=== PATIENT | female | born 1995 ===

== ENCOUNTER 2020-10-01 10:37 | Outpatient (CLI) | payer SELFPAY ==
[2020-10-01 11:07] VITALS: BP 117/79
[2020-10-01] MEDS ORDERED: BETAMET ACET/BETAMET NA PH 6 MG/ML INJ 5 ML MDV IM ONE (12:21)
== END 2020-10-01 11:55 | disposition home or self-care (01) ==
LOC: EDBD → TRG 10:37 → APU 10:39 → TRG 11:55
PROVIDERS: ATTEND Obstetrics & Gynecology
DX: O47.03 False labor before 37 completed weeks of gestation, third trimester (principal); Z87.891 Personal history of nicotine dependence; Z3A.28 28 weeks gestation of pregnancy
CPT/HCPCS: 59025; 96372; J0702

== ENCOUNTER 2020-10-02 11:14 | Outpatient (CLI) | payer SELFPAY ==
[2020-10-02] MEDS ORDERED: LACTATED RINGERS 500 ML IV ONE (11:50)
[2020-10-02] MEDS ORDERED: BETAMET ACET/BETAMET NA PH 6 MG/ML INJ 5 ML MDV IM ONE (11:50)
[2020-10-02 11:57] VITALS: BP 101/64
== END 2020-10-02 12:30 | disposition home or self-care (01) ==
LOC: TRG 11:14 → APU 11:27 → TRG 12:30
PROVIDERS: ATTEND Obstetrics & Gynecology
DX: Z34.93 Encounter for supervision of normal pregnancy, unspecified, third trimester (principal); Z3A.28 28 weeks gestation of pregnancy
CPT/HCPCS: 59025; 96372; J0702

== ENCOUNTER 2020-11-23 07:47 | Inpatient (IN) | payer OTHER ==
[2020-11-23 10:15] LABS: Hematocrit 37.8 % (30.3-42.9); Hemoglobin 12.9 gm/dl (10.1-14.3); Mean Corpuscular HGB Conc 34 % (30-34); Mean Corpuscular Volume 93 fl (79-97); Platelet Count 134 K/mm3 (140-440); Red Blood Count 4.05 M/mm3 (3.65-5.03); Red Cell Distribution Width 12.7 % (13.2-15.2)
[2020-11-23 10:41] LABS: Bilirubin,Urine NEG (Negative); Blood,Urine NEG (Negative); Color,Urine Yellow (Yellow); Mucus,Urine 1+ /HPF; Urobilinogen,Urine < 2.0 mg/dL (<2.0)
[2020-11-23] MEDS ORDERED: LIDOCAINE (2%) 20 MG/1 ML VIAL 20 ML MDV INFILTRATI NR (11:15)
[2020-11-23] MEDS ORDERED: NALOXONE 0.4 MG/1 ML INJ IV PRN (11:15)
[2020-11-23] MEDS ORDERED: ePHEDrine SULFATE 50 MG/1 ML INJ IV PRN (11:15)
[2020-11-23] MEDS ORDERED: TERBUTALINE 1 MG/1 ML INJ SUB-Q PRN (11:15)
[2020-11-23] MEDS ORDERED: ONDANSETRON 4 MG/2 ML INJ IV PRN (11:15)
--- NOTE | 2020-11-23 11:32 | History and Physical Report ---
History of Present Illness Date of examination: 11/23/20 Date of admission: 11/23/2020 Chief complaint: My water broke at 0700 this morning History of present illness: Early entry to care at [facility], course complicated by Abnormal Pap (ASCUS /Neg HPV); Abnormal Quad Screen (+ Open NTD); Thrombocytopenia; and IUGR (co-managed with [facility], Received Steriods series @ 28 weeks). 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 Family/Genetic History: hypertension (mother) Social history: smoking (o), alcohol abuse (Stopped with +UPT) - Obstetrical History Expected Date of Delivery: 12/22/20 Actual Gestation: 35 Week(s) 6 Day(s) : 1 Para: 0 Number of Living Children: 0 Medications and Allergies Allergies Allergy/AdvReac Type Severity Reaction Status Date / Time No Known Allergies Allergy Verified 10/02/20 11:55 Active Meds: Active Medications Butorphanol Tartrate (Butorphanol 2 Mg/1 Ml Inj) 1 mg IV Q2H PRN PRN Reason: Pain, Moderate(4-6) LABOR PAIN Ephedrine Sulfate (Ephedrine Sulfate 50 Mg/1 Ml Inj) 10 mg IV Q2M PRN PRN Reason: Hypotension Oxytocin/Sodium Chloride (Pitocin/Ns 30 Unit/500ml) 30 units in 500 mls @ 2 mls/hr IV TITR RAYMUNDO; Protocol Lactated Ringer's (Lactated Ringers) 1,000 mls @ 125 mls/hr IV DIRECT RAYMUNDO Oxytocin/Sodium Chloride (Pitocin/Ns 30 Unit/500ml) 30 units in 500 mls @ 40 mls/hr IV TITR RAYMUNDO; Protocol Lidocaine (Lidocaine (2%) 20 Mg/1 Ml Vial 20 Ml Mdv) 20 ml INFILTRATI ONCE ONE Stop: 11/23/20 11:16 Mineral Oil (Mineral Oil 30 Ml Oral Liqd) 30 ml PO QHS PRN PRN Reason: Constipation Naloxone HCl (Naloxone 0.4 Mg/1 Ml Inj) 0.1 mg IV Q2MIN PRN PRN Reason: Res Rate </= 8 or 02 SAT < 92% Ondansetron HCl (Ondansetron 4 Mg/2 Ml Inj) 4 mg IV Q8H PRN PRN Reason: Nausea And Vomiting Terbutaline Sulfate (Terbutaline 1 Mg/1 Ml Inj) 0.25 mg SUB-Q ONCE PRN PRN Reason: Hyperstimulation/Hypertonicity Review of Systems All systems: negative - Vital Signs Vital signs: Vital Signs Temp Pulse Resp BP Pulse Ox 98.2 F 111 H 14 111/68 98 11/23/20 09:10 11/23/20 09:10 11/23/20 09:10 11/23/20 09:10 11/23/20 09:10 Temp Pulse Resp BP Pulse Ox 98.2 F 97 H 14 111/68 97 11/23/20 09:10 11/23/20 09:45 11/23/20 09:10 11/23/20 09:15 11/23/20 09:45 - Physical Exam Breasts: Positive: normal Cardiovascular: Regular rate Lungs: Positive: Clear to auscultation, Normal air movement Abdomen: Positive: normal appearance, soft, normal bowel sounds Genitourinary (Female): Positive: normal external genitalia, normal perenium Vagina: Positive: normal moisture Uterus: Positive: enlarged Anus/Rectum: Positive: normal perianal skin, heme negative Extremities: Positive: normal - Obstetrical FHR: category 1 Uterine Contraction Monitor Mode: External Cervical Dilatation: 1 (leaking a small amount of clear fluid) Cervical Effacement Percentage: 40 station: -1 Uterine Contraction Pattern: Irregular Uterine Tone Measurement Phase: Resting Uterine Contraction Intensity: Mild Results Result Diagrams: 11/23/20 09:10 Abnormal lab results 11/23/20 Range/Units 09:10 WBC 12.7 H (4.5-11.0) K/mm3 RDW 12.7 L (13.2-15.2) % Plt Count 134 L (140-440) K/mm3 All other labs normal. Assessment and Plan A: IUP @ 35 6/7 Weeks Category I Tracing PPROM GBS Negative P: Admit to L&D Per Routine Orders Start Low Dose Pitocin
[2020-11-23] MEDS: LACTATED RINGERS 1,000 ML IV SCH ×3 (11:59→20:04)
[2020-11-23] MEDS ORDERED: OXYTOCIN DRIP 30 UNITS/500 ML BAG IV SCH ×2 (12:00)
[2020-11-23] MEDS: BUTORPHANOL 2 MG/1 ML INJ IV PRN ×2 (15:53→20:27)
[2020-11-23] MEDS ORDERED: NalbUPHINE 10 MG/1 ML INJ IV PRN (21:13)
[2020-11-23] MEDS ORDERED: NALOXONE 2 MG/2 ML INJ IV PRN (21:13)
[2020-11-23] MEDS ORDERED: diphenhydrAMINE 50 MG/ML VIAL IV PRN (21:13)
--- NOTE | 2020-11-23 21:49 | Anesthesia Consultation ---
Anesthesia Consult and Med Hx Date of service: 11/23/20 - Airway Anesthetic Teeth Evaluation: Good ROM Head & Neck: Adequate Mental/Hyoid Distance: Adequate Mallampati Class: Class I Intubation Access Assessment: Good - Pulmonary Exam CTA: Yes - Cardiac Exam Cardiac Exam: RRR - Pre-Operative Health Status ASA Pre-Surgery Classification: ASA2 Proposed Anesthetic Plan: Epidural - Pulmonary Hx Smoking: No Hx Asthma: No COPD: No Hx Pneumonia: No Hx Sleep Apnea: No - Cardiovascular System Hx Hypertension: No Hx Heart Attack/AMI: No Hx Angina: No - Central Nervous System Hx Seizures: No Hx Psychiatric Problems: No - Gastrointestinal Hx Gastroesophageal Reflux Disease: No - Endocrine Hx Renal Disease: No Hx End Stage Renal Disease: No Hx Insulin Dependent Diabetes: No Hx Non-Insulin Dependent Diabetes: No Hx Hypothyroidism: No Hx Hyperthyroidism: No - Hematic Hx Anemia: No Hx Sickle Cell Disease: No - Other Systems Hx Alcohol Use: No
--- NOTE | 2020-11-23 21:51 | Progress Note ---
Labor Epidural - Labor Epidural Start Time: 21:25 Stop Time: 21:43 Performed by:: MARISOL BALDWIN Procedure: Patient is requesting epidural for labor and pain. H&P, labs were reviewed. Patient IDed, H&P reviewed, all questions and concerns were answered, and consent was signed. Timeout was performed at bedside. Patient in sitting position. Sterile prep and drape was performed. 3ml of 1% lidocaine skin wheal at L[3]- L [4]. 18-gauge Tuohy epidural needle was advanced to loss of resistance with air technique 5cm. Negative CSF positive blood. Catheter removed intact. 18-gauge Tuohy epidural needle was advanced to loss of resistance with air technique 5cm. Negative CSF negative blood. Epidural catheter advanced to [10] centimeters. [negative] Aspiration [negative] test dose. Sterile dressing applied. Patient tolerated procedure.
[2020-11-23] MEDS ORDERED: fentaNYL-BUPIV 2 MCG/ML-0.125% 200 MCG/100 ML BAG EPIDURAL SCH (22:00)
[2020-11-23] MEDS ORDERED: MINERAL OIL 30 ML ORAL LIQD PO PRN (22:00)
[2020-11-23] MEDS ORDERED: miSOPROStol 100 MCG TAB ONE (23:42)
[2020-11-23] MEDS ORDERED: miSOPROStol 200 MCG TAB ONE (23:43)
--- NOTE | 2020-11-24 00:22 | Procedure Note ---
OB Delivery Note - Delivery Date of Delivery: 11/23/20 (2334) Surgeon: CURTIS ESQUIVEL Estimated blood loss: 100cc - Vaginal Delivery presentation: vertex Delivery position: OA Intrapartum events: mult.variable deceleratio, other(please specify) (PPROM) Delivery induction: oxytocin Delivery augmentation: pitocin Delivery monitor: external FHT, external uterine Route of delivery: Delivery placenta: manual Delivery cord: 3 umbilical vessels Episiotomy: none Delivery laceration: 2nd degree Delivery repair: vicryl Anesthesia: epidural Delivery comments: of a live 4'3 female with Apgars of 7 and 8 over a 2nd degree perineal laceration under epidural anesthesia at 2334 on 11/23/2020. Loose body cord x 1; reduced with delivery of . Cord double clamped and cut by MALENA Esquivel. 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 Manual extraction of placenta due to avulsed cord, appears to be complete and intact on 1 attempt at 2338. Cytotec 1000mcg given per rectum. Fundus is firm and midline, located 4 below the U. Lochia is scant. Laceration repaired with 2-[address]-1. Placenta to pathology. - A at 1 minute: 7 at 5 minutes: 8 Gender: Female (4'3)
[2020-11-24] MEDS ORDERED: miSOPROStol 200 MCG TAB PR ONE (00:32)
[2020-11-24] MEDS ORDERED: PROMETHAZINE 25 MG TAB PO PRN (00:34)
[2020-11-24] MEDS ORDERED: WITCH HAZEL/ GLYCERIN PAD TP PRN (00:34)
[2020-11-24] MEDS ORDERED: LANOLIN/ZINC/DIMETHICONE (LANSINOH) 7 GM TP PRN (00:34)
[2020-11-24] MEDS ORDERED: MAGNESIUM HYDROXIDE (MOM) ORAL LIQD UDC PO PRN (00:34)
[2020-11-24] MEDS ORDERED: diphenhydrAMINE 25 MG CAP PO PRN (00:34)
[2020-11-24] MEDS ORDERED: oxyCODONE /ACETAMINOPHEN 5-325MG TAB PO PRN (00:34)
[2020-11-24] MEDS: IBUPROFEN 600 MG TAB PO SCH ×4 (05:19→23:53)
--- NOTE | 2020-11-24 12:07 | Post Anesthesia Evaluation ---
- Post Anesthesia Evaluation Patient Participated: Yes Airway Patent: Yes Stable Respiratory Function: Yes Nausea/Vomiting: No Temp > 96.8F: Yes Pain Manageable: Yes Adequeate Hydration: Yes Anesthesia Complications: No Block Receding Appropriately: Yes Patient on Ventilator: No
[2020-11-24 14:24] LABS: Hematocrit 31.5 % (30.3-42.9); Hemoglobin 10.7 gm/dl (10.1-14.3)
[2020-11-24] MEDS: guaiFENesin 100 MG/5 ML ORAL LIQD PO PRN (17:47)
[2020-11-25] MEDS: IBUPROFEN 600 MG TAB PO SCH ×2 (06:06→17:27)
[2020-11-25] MEDS: guaiFENesin 100 MG/5 ML ORAL LIQD PO PRN ×3 (06:08→17:28)
--- NOTE | 2020-11-25 09:01 | Progress Note ---
Subjective - Subjective Date of service: 11/25/20 Interval history: AM rounds no complaints at bedside VSS PE benign Lochia minimal continue routine care D/C to home in AM Monique Schuler MD Objective - Vital Signs Latest vital signs: Vital Signs Temp Pulse Resp BP BP Pulse Ox 11/25/20 00:33 98.1 F 99 H 18 120/75 98 11/24/20 16:00 98.1 F 87 16 106/68 97 Intake and Output 11/24/20 11/25/20 11/25/20 23:59 07:59 15:59 Intake Total 120 360 Balance 120 360 Intake: Oral 120 360 Other: Total, Intake Amount 120 120 # Voids Void 1 1 - Exam Breasts: Present: normal Cardiovascular: Present: Regular rate Lungs: Present: Clear to auscultation Abdomen: Present: normal appearance, normal bowel sounds Uterus: Present: normal, bogginess, fundal height at umbilicus Extremities: Present: normal Deep Tendon Reflex Grade: Normal but brisk +3
[2020-11-25 18:15] VITALS: BP 103/64
== END 2020-11-25 18:15 | disposition home or self-care (01) | DRG 807 ==
LOC: TRG 07:47 → APU 07:49 → LD 08:39 → TRG 11:15 → OB 11-24 01:36
PROVIDERS: ADMIT Obstetrics & Gynecology; ATTEND Obstetrics & Gynecology
PROC: 10E0XZZ Delivery of Products of Conception, External Approach (ICD-10-PCS; principal; 2020-11-23)
PROC: 0KQM0ZZ Repair Perineum Muscle, Open Approach (ICD-10-PCS; 2020-11-23)
PROC: 3E0R3BZ Introduction of Anesthetic Agent into Spinal Canal, Percutaneous Approach (ICD-10-PCS; 2020-11-24)
PROC: 00HU33Z Insertion of Infusion Device into Spinal Canal, Percutaneous Approach (ICD-10-PCS; 2020-11-24)
PROC: 3E033VJ Introduction of Other Hormone into Peripheral Vein, Percutaneous Approach (ICD-10-PCS; 2020-11-24)
DX: O60.14X0 Preterm labor third trimester with preterm delivery third trimester, not applicable or unspecified (principal); Z37.0 Single live birth; O42.013 Preterm premature rupture of membranes, onset of labor within 24 hours of rupture, third trimester; Z3A.35 35 weeks gestation of pregnancy; Z20.822 Contact with and (suspected) exposure to COVID-19; O70.1 Second degree perineal laceration during delivery
CPT/HCPCS: 36415; 81001; 85014; 85018; 85027; 86592; 86850; 86900; 86901; 88307; G0378; A6250; J0595; J2590; J7120; Q0169; U0003

== ENCOUNTER 2020-12-01 09:02 | Inpatient (IN) | payer OTHER ==
[2020-12-01] MEDS ORDERED: SODIUM CHLORIDE 0.9% 1000 ML 1,000 ML IV ONE ×2 (09:27)
--- NOTE | 2020-12-01 09:39 | Emergency Department Report ---
HPI - General Chief Complaint: Vaginal Bleeding Time Seen by Provider: 12/01/20 09:26 - [facility] HPI: Room 22 The patient is a 25-year-old female present with a chief complaint of vaginal bleeding. Patient is status post vaginal delivery 11/23/2020. The patient states since she was discharged home she has continued to have heavy vaginal bleeding. Patient estimates she goes through approximately 7-9 pads per day. Patient states she began feeling dizzy, weak and short of breath. Patient complains of lower abdominal pain. She states she had a fever 101 F last night. ED Past Medical Hx - Surgical History Past Surgical History?: No - Family History Family history: no significant - Social History Smoking Status: Never Smoker Substance Use Type: None - Medications Home Medications: Home Medications Medication Instructions Recorded Confirmed Last Taken Type No Known Home Medications [No 11/24/20 11/24/20 Unknown History Reported Home Medications] ED Review of Systems ROS: Stated complaint: BLEEDING/ADB PAIN Other details as noted in HPI Constitutional: fever, weakness Eyes: denies: eye pain ENT: denies: throat pain Respiratory: shortness of breath Cardiovascular: denies: chest pain Endocrine: no symptoms reported Gastrointestinal: abdominal pain Genitourinary: abnormal menses Musculoskeletal: denies: back pain Neurological: denies: headache Physical Exam - Physical Exam Vital Signs: Vital Signs 12/01/20 09:08 Temperature 98 F Pulse Rate 131 H Respiratory 18 Rate Blood Pressure 95/49 [Right] O2 Sat by Pulse 99 Oximetry Vital Signs 12/01/20 12/01/20 12/01/20 09:08 09:30 09:46 Temperature 98 F Pulse Rate 131 H 109 H 110 H Respiratory 18 23 30 H Rate Blood Pressure 101/60 88/56 Blood Pressure 95/49 [Right] O2 Sat by Pulse 99 99 99 Oximetry 12/01/20 10:00 Temperature Pulse Rate 104 H Respiratory 36 H Rate Blood Pressure 98/62 Blood Pressure [Right] O2 Sat by Pulse 100 Oximetry Physical Exam: GENERAL: The patient is well-developed well-nourished female lying on stretcher appearing to be in mild discomfort. [] HEENT: Normocephalic. Atraumatic. Extraocular motions are intact. Patient has moist mucous membranes. NECK: Supple. Trachea midline CHEST/LUNGS: Clear to auscultation. There is no respiratory distress noted. HEART/CARDIOVASCULAR: Regular. There is tachycardia. There is no gallop rub or murmur. ABDOMEN: Abdomen is soft, with tenderness to palpation in the lower abdomen. Patient has normal bowel sounds. There is no abdominal distention. SKIN: There is no rash. There is no edema. There is no diaphoresis. NEURO: The patient is awake, alert, and oriented. The patient is cooperative. The patient has no focal neurologic deficits. The patient has normal speech MUSCULOSKELETAL: There is no evidence of acute injury. 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 Archer- will come evaluate patient ED Medical Decision Making - Lab Data Result diagrams: 12/01/20 09:34 12/01/20 09:34 Laboratory Tests 12/01/20 12/01/20 12/01/20 09:34 09:34 09:34 WBC 21.3 H RBC 3.09 L Hgb 9.5 L Hct 27.8 L MCV 90 MCH 31 MCHC 34 RDW 12.5 L Plt Count 206 Add Manual Diff Complete Total Counted 100 Seg Neuts % (Manual) 82.0 H Band Neutrophils % 7.0 Lymphocytes % (Manual) 5.0 L Monocytes % (Manual) 6.0 Nucleated RBC % Not Reportable Seg Neutrophils # Man 17.5 H Band Neutrophils # 1.5 Lymphocytes # (Manual) 1.1 L Abs React Lymphs (Man) 0.0 Monocytes # (Manual) 1.3 H Eosinophils # (Manual) 0.0 Basophils # (Manual) 0.0 Metamyelocytes # 0.0 Myelocytes # 0.0 Promyelocytes # 0.0 Blast Cells # 0.0 WBC Morphology Not Reportable Hypersegmented Neuts Not Reportable Hyposegmented Neuts Not Reportable Hypogranular Neuts Not Reportable Smudge Cells Not Reportable Toxic Granulation Not Reportable Toxic Vacuolation Not Reportable Dohle Bodies Not Reportable Pelger-Huet Anomaly Not Reportable Pricila Rods Not Reportable Platelet Estimate Consistent w auto Clumped Platelets Not Reportable Plt Clumps, EDTA Not Reportable Large Platelets Not Reportable Giant Platelets Not Reportable Platelet Satelliting Not Reportable Plt Morphology Comment Not Reportable RBC Morphology Not Reportable Dimorphic RBCs Not Reportable Polychromasia Few Hypochromasia Not Reportable Poikilocytosis Not Reportable Anisocytosis Not Reportable Microcytosis Not Reportable Macrocytosis Not Reportable Spherocytes Not Reportable Pappenheimer Bodies Not Reportable Sickle Cells Not Reportable Target Cells Not Reportable Tear Drop Cells Not Reportable Ovalocytes Not Reportable Helmet Cells Not Reportable [place]ald[place] Bodies Not Reportable Stewardson Rings Not Reportable Shyanne Cells Not Reportable Bite Cells Not Reportable Crenated Cell Not Reportable Elliptocytes Not Reportable Acanthocytes (Spur) Not Reportable Rouleaux Not Reportable Hemoglobin C Crystals Not Reportable Schistocytes Not Reportable Malaria parasites Not Reportable Henri Bodies Not Reportable Hem Pathologist Commnt No PT 13.6 INR 1.05 APTT 29.8 Sodium 132 L Potassium 4.0 Chloride 99.6 Carbon Dioxide 22 Anion Gap 14 BUN 8 Creatinine 0.5 L Estimated GFR > 60 BUN/Creatinine Ratio 16 Glucose 113 H Calcium 8.9 HCG, Quant 12/01/20 09:34 WBC RBC Hgb Hct MCV MCH MCHC RDW Plt Count Add Manual Diff Total Counted Seg Neuts % (Manual) Band Neutrophils % Lymphocytes % (Manual) Monocytes % (Manual) Nucleated RBC % Seg Neutrophils # Man Band Neutrophils # Lymphocytes # (Manual) Abs React Lymphs (Man) Monocytes # (Manual) Eosinophils # (Manual) Basophils # (Manual) Metamyelocytes # Myelocytes # Promyelocytes # Blast Cells # WBC Morphology Hypersegmented Neuts Hyposegmented Neuts Hypogranular Neuts Smudge Cells Toxic Granulation Toxic Vacuolation Dohle Bodies Pelger-Huet Anomaly Pricila Rods Platelet Estimate Clumped Platelets Plt Clumps, EDTA Large Platelets Giant Platelets Platelet Satelliting Plt Morphology Comment RBC Morphology Dimorphic RBCs Polychromasia Hypochromasia Poikilocytosis Anisocytosis Microcytosis Macrocytosis Spherocytes Pappenheimer Bodies Sickle Cells Target Cells Tear Drop Cells Ovalocytes Helmet Cells [place]on-[place]ald[place] Bodies Stewardson Rings [place] Cells Bite Cells Crenated Cell Elliptocytes Acanthocytes (Spur) Rouleaux Hemoglobin C Crystals Schistocytes Malaria parasites Henri Bodies Hem Pathologist Commnt PT INR APTT Sodium Potassium Chloride Carbon Dioxide Anion Gap BUN Creatinine Estimated GFR BUN/Creatinine Ratio Glucose Calcium HCG, Quant 650.6 H - Radiology Data Radiology results: report reviewed (Pelvic ultrasound), image reviewed (Pelvic ultrasound) [facility] [address] [place] [address] Ultrasound Report Signed Patient: KELLY MARCELINO R#: [id number] : 1995 Acct:[id number] Age/Sex: 25 / F ADM Date: 12/01/20 Loc: ED Attending Dr: Ordering Physician: GEOVANY BRAGA MD Date of Service: 12/01/20 P rocedure(s): US pelvic complete Accession Number(s): [id number] cc: GEOVANY BRAGA MD ULTRASOUND PELVIS INDICATION / CLINICAL INFORMATION: Heavy bleeding. TECHNIQUE: Transabdominal. Duplex Color Doppler used: Yes. COMPARISON: None available FINDINGS: UTERUS: The uterus is enlarged and measures 15.4 x 6.8 x 9.0 cm. The uterus is in anteverted position without focal uterine lesion. Endometrial thickness measures 11.1 mm. The lower uterine segment endometrial thickness measures 25.3 mm with complexity and internal echogenicity with Doppler color flow. RIGHT ADNEXA: No significant ovarian cyst or mass. Normal color Doppler blood flow. LEFT ADNEXA: No significant ovarian cyst or mass. Normal color Doppler blood flow. URINARY BLADDER: No significant abnormality. FREE FLUID: None. ADDITIONAL FINDINGS: None. IMPRESSION: 1. Endometrial complexity and increased color flow concerning for retained products of conception given the patient's recent status. Close clinical and ultrasound follow-up is recommende d. Signer Name: Jack Pyle MD Signed: 12/01/2020 10:20 AM Workstation Name: [id number] Transcribed By: Dictated By: JACK PYLE Electronically Authenticated By: JACK PYLE Signed Date/Time: 12/01/20 1020 DD/ 1016 TD/TT: Print Cancel - Differential Diagnosis Retained products of conception, UTI, pyelonephritis, symptomatic anemia Critical care attestation.: If time is entered above; I have spent that time in minutes in the direct care of this critically ill patient, excluding procedure time. ED Disposition Clinical Impression: Retained products of conception, hemorrhage of vagina Disposition: OP ADMIT IP TO THIS HOSP Is pt being admited?: Yes Does the pt Need Aspirin: No Condition: Fair Referrals: PRIMARY CARE, [Primary Care Provider] - 3-5 Days Time of Disposition: 11:28 (Patient admitted by Dr. Archer)
[2020-12-01 09:58] LABS: Hematocrit 27.8 % (30.3-42.9); Hemoglobin 9.5 gm/dl (10.1-14.3); Mean Corpuscular HGB Conc 34 % (30-34); Mean Corpuscular Volume 90 fl (79-97); Platelet Count 206 K/mm3 (140-440); Red Blood Count 3.09 M/mm3 (3.65-5.03); Red Cell Distribution Width 12.5 % (13.2-15.2)
[2020-12-01 10:06] LABS: INR 1.05 (0.87-1.13); Partial Thromboplastin Time 29.8 Sec. (24.2-36.6)
[2020-12-01 10:10] LABS: Blood Urea Nitrogen 8 mg/dL (7-17); Calcium 8.9 mg/dL (8.4-10.2); Hemolysis Index 5
[2020-12-01 10:11] LABS: BUN/Creatinine Ratio 16
--- NOTE | 2020-12-01 10:24 | Ultrasound Report ---
ULTRASOUND PELVIS INDICATION / CLINICAL INFORMATION: Heavy bleeding. TECHNIQUE: Transabdominal. Duplex Color Doppler used: Yes. COMPARISON: None available FINDINGS: UTERUS: The uterus is enlarged and measures 15.4 x 6.8 x 9.0 cm. The uterus is in anteverted position without focal uterine lesion. Endometrial thickness measures 11.1 mm. The lower uterine segment endo metrial thickness measures 25.3 mm with complexity and internal echogenicity with Doppler color flow. RIGHT ADNEXA: No significant ovarian cyst or mass. Normal color Doppler blood flow. LEFT ADNEXA: No significant ovarian cyst or mass. Normal color Doppler blood flow. URINARY BLADDER: No significant abnormality. FREE FLUID: None. ADDITIONAL FINDINGS: None. IMPRESSION: 1. Endometrial complexity and increased color flow concerning for retained products of conception giv en the patient's recent status. Close clinical and ultrasound follow-up is recommended. Signer Name: Jack Bruno MD Signed: 12/01/2020 10:20 AM Workstation Name: [id number]
[2020-12-01 10:30] LABS: Band Neutrophils # (Manual) 1.5 K/mm3; Total Cells Counted 100
[2020-12-01 10:31] LABS: Platelet Estimate Consistent w Auto
--- NOTE | 2020-12-01 11:37 | History and Physical Report ---
History of Present Illness Date of examination: 12/01/20 Chief complaint: vaginal bleeding, PPD7 History of present illness: 25-year-old otherwise medical uncomplicated day 7 status post vaginal delivery at this facility at 36 weeks 0 days presenting with heavy vaginal bleeding, reported fever to 101, dizziness, weakness, and shortness of breath found to have elevated white count and tachycardia with ultrasound findings suggestive of retained products of conception. Patient without fever on presentation. course complicated by ASCUS Pap HPV negative and abnormal quad screen for neural tube defects. Patient delivered for premature prelabor rupture membranes at 35 weeks 6 days with subsequent induction of labor. Delivery complicated by avulsed umbilical cord with manual extraction of placenta. Cytotec given for uterine contractions and 2-0 Vicryl used for perineal laceration. Infant doing well the NICU for prematurity. 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) Family/Genetic History: none Social history: no significant social history - Obstetrical History : 1 Para: 1 Number of Pregnancies: 1 Number of Living Children: 1 Medications and Allergies Allergies Allergy/AdvReac Type Severity Reaction Status Date / Time No Known Allergies Allergy Verified 12/01/20 09:05 Home Medications Medication Instructions Recorded Confirmed Last Taken Type No Known Home Medications [No 11/24/20 11/24/20 Unknown History Reported Home Medications] Review of Systems All systems: negative (expect HPI) - Vital Signs Vital signs: Vital Signs Temp Pulse Resp BP Pulse Ox 98 F 131 H 18 95/49 99 12/01/20 09:08 12/01/20 09:08 12/01/20 09:08 12/01/20 09:08 12/01/20 09:08 Temp Pulse Resp BP Pulse Ox 98 F 104 H 36 H 98/62 100 12/01/20 09:08 12/01/20 10:00 12/01/20 10:00 12/01/20 10:00 12/01/20 10:00 - Physical Exam Cardiovascular: Other (Mild tachycardia) Lungs: Positive: Clear to auscultation, Normal air movement Abdomen: Positive: normal appearance, soft, other (Mild uterine discomfort) Uterus: Positive: enlarged, tender Results Result Diagrams: 12/01/20 09:34 12/01/20 09:34 Abnormal lab results 12/01/20 12/01/20 12/01/20 Range/Units 09:34 09:34 09:34 WBC 21.3 H (4.5-11.0) K/mm3 RBC 3.09 L (3.65-5.03) M/mm3 Hgb 9.5 L (10.1-14.3) gm/dl Hct 27.8 L (30.3-42.9) % RDW 12.5 L (13.2-15.2) % Seg Neuts % (Manual) 82.0 H (40.0-70.0) % Lymphocytes % (Manual) 5.0 L (13.4-35.0) % Seg Neutrophils # Man 17.5 H (1.8-7.7) K/mm3 Lymphocytes # (Manual) 1.1 L (1.2-5.4) K/mm3 Monocytes # (Manual) 1.3 H (0.0-0.8) K/mm3 Sodium 132 L (137-145) mmol/L Creatinine 0.5 L (0.6-1.2) mg/dL Glucose 113 H (65-100) mg/dL HCG, Quant 650.6 H (0-4) mIU/mL All other labs normal. Ultrasound: report reviewed (Endometrial thickness of 25.3 cm with echogenicity concerning for retained products of conception) Assessment and Plan - Patient Problems (1) Retained products of conception Current Visit: Yes Status: Acute Plan to address problem: day 7 status post vaginal delivery at 36 weeks complicated by avulsion umbilical cord with manual extraction now with symptoms and ultrasound findings suggestive of retained products of conception and endometritis. --To OR for ultrasound-guided dilation and curettage Questions solicited and answered Consented in the chart (2) Endometritis Current Visit: Yes Status: Acute Plan to address problem: --Start ampicillin, gentamicin, and clindamycin for presumed endometritis now for surgical management --For inpatient admission afterwards for IV antibiotics and transition to p.o. antibiotics as well as extended monitoring
[2020-12-01] MEDS ORDERED: GENTAMICIN 0 MG in SODIUM CHLORIDE 0.9% 100 ML IV SCH (12:00)
[2020-12-01] MEDS ORDERED: AMPICILLIN 2 GM in SODIUM CHLORIDE 0.9% 50 ML IV SCH (12:00)
[2020-12-01] MEDS: LACTATED RINGERS 1,000 ML IV SCH ×3 (12:23→21:41)
[2020-12-01] MEDS: AMPICILLIN/NS 2 GM/100 ML 2 GM/100 ML BAG IV SCH ×2 (13:10→19:45)
[2020-12-01] MEDS: GENTAMICIN/NS 100 MG/100 ML 100 MG/100 ML BAG IV SCH ×2 (13:11→21:37)
--- NOTE | 2020-12-01 14:04 | Anesthesia Consultation ---
Anesthesia Consult and Med Hx Date of service: 12/01/20 - Airway Anesthetic Teeth Evaluation: Good ROM Head & Neck: Adequate Mental/Hyoid Distance: Adequate Mallampati Class: Class II Intubation Access Assessment: Probably Good - Pre-Operative Health Status ASA Pre-Surgery Classification: ASA1 Proposed Anesthetic Plan: General - Pulmonary Hx Smoking: No Hx Asthma: No Hx Respiratory Symptoms: No SOB: No COPD: No Home Oxygen Therapy: No Hx Pneumonia: No Hx Sleep Apnea: No - Cardiovascular System Hx Hypertension: No Hx Coronary Artery Disease: No Hx Heart Attack/AMI: No Hx Angina: No Hx Percutaneous Transluminal Coronary Angioplasty (PTCA): No Hx Cardia Arrhythmia: No Hx Pacemaker: No Hx Internal Defibrillator: No Hx Valvular Heart Disease: No Hx Heart Murmur: No Hx Peripheral Vascular Disease: No - Central Nervous System Hx Neuromuscular Disorder: No Hx Seizures: No CVA: No Hx Back Pain: No Hx Psychiatric Problems: No - Gastrointestinal Hx Ulcer: No Hx Gastroesophageal Reflux Disease: No - Endocrine Hx Renal Disease: No Hx End Stage Renal Disease: No Hx Cirrhosis: No Hx Liver Disease: No Hx Insulin Dependent Diabetes: No Hx Non-Insulin Dependent Diabetes: No Hx Thyroid Disease: No Hx Hypothyroidism: No Hx Hyperthyroidism: No - Hematic Hx Anemia: No Hx Sickle Cell Disease: No - Other Systems Hx Alcohol Use: No Hx Substance Use: No Hx Cancer: No Hx Obesity: No
--- NOTE | 2020-12-01 14:04 | Anesthesia Day of Surgery ---
Anesthesia Day of Surgery - Day of Surgery Patient Examined: Yes Patient H&P Reviewed: Yes Patient is NPO: Yes
[2020-12-01] MEDS ORDERED: LIDOCAINE MPF (2%) 20 MG/1 ML VIAL 5 ML ONE (14:07)
[2020-12-01] MEDS ORDERED: GLYCOPYRROLATE 0.4 MG/2 ML INJ ONE (14:08)
[2020-12-01] MEDS ORDERED: dexAMETHasone 20 MG/5 ML VIAL ONE (14:08)
[2020-12-01] MEDS ORDERED: fentaNYL 100 MCG/2 ML INJ ONE (14:08)
[2020-12-01] MEDS ORDERED: propofoL 200 MG/20 ML VIAL IV ONE (14:08)
[2020-12-01] MEDS ORDERED: PHENYLEPHRINE/NS 1,000 MCG/10 ML SYRINGE (OR USE) IV ONE (14:08)
[2020-12-01] MEDS ORDERED: ONDANSETRON 4 MG/2 ML INJ ONE (14:08)
[2020-12-01] MEDS ORDERED: VASOPRESSIN 20 UNIT/1 ML INJ ONE (14:25)
[2020-12-01] MEDS ORDERED: ONDANSETRON 4 MG/2 ML INJ IV PRN (14:41)
[2020-12-01] MEDS ORDERED: MORPHINE 4 MG/1 ML INJ IV PRN (14:41)
[2020-12-01] MEDS ORDERED: IBUPROFEN 800 MG TAB PO PRN (14:41)
[2020-12-01] MEDS ORDERED: METOCLOPRAMIDE 10 MG TAB PO PRN (14:41)
[2020-12-01] MEDS ORDERED: oxyCODONE /ACETAMINOPHEN 5-325MG TAB PO PRN (14:41)
[2020-12-01] MEDS ORDERED: NALOXONE 0.4 MG/1 ML INJ IV PRN (14:41)
--- NOTE | 2020-12-01 14:46 | Procedure Note ---
Date of procedure: 12/01/20 Pre-op diagnosis: retained products of conception Post-op diagnosis: same Procedure: Preoperative diagnosis: 1. retained products of conception, PPD7 Postoperative diagnosis: 1. Same Operation performed: 1. Examined under anesthesia 2. Dilation & curettage Surgeon: Evelio Shepard Anesthesia: General EBL: 50cc UOP: 200cc IVF 700cc Pathology specimens: prodcuts of conception Complications: none Disposition and condition: To the PACU in stable condition then admitted for observation Findings: 1. 8 week size mobile uterus 2. Moderate amount of products of conception Statement of medical necessity: 25 yo PPD7 s/p woman who presents with reported fever at home, elevated white blood count and tachycardia with ultrasound findings concerning for retained products of conception. She desired surgical management. The procedure risk benefits, indications and alternatives reviewed patient. Description of operation: After informed consent, the patient was taken to the OR and placed in Tommy stirrups after general anesthesia was administered. An exam under anesthesia was performed with the findings noted above. The vagina was prepped and draped in the usual sterile fashion. Catheterization of the bladder was performed. A duckbill speculum was placed to visualize the cervix. A single-tooth tenaculum was placed onto the anterior cervical lip. Serial dilation of the cervix with Yee dilators was performed. The uterus was gently sounded to 10 centimeters. Suction was calibrated to 50 mmHg, and a 12 millimeters curette was gently advanced into the uterine cavity fundus. Suction was applied, and the curette was rotated to evacuate the uterus of products of conception. A sharp curettage was performed until a gritty texture was noted. Suction curettage was repeated to clear the remaining products of conception. Minimal bleeding was noted after administration of 30 units of oxytocin intravenously. The tenaculum was removed from the cervix with good hemostasis noted. The speculum was removed. Patient tolerated the procedure well and was taken to recovery room in good condition. Anesthesia: GETA Surgeon: EVELIO SHEPARD JR Estimated blood loss: other (50cc) IV fluids: 700 Urine output: 200 Pathology: list (products of conception) Specimen disposition: to lab Condition: stable Disposition: observation
[2020-12-01] MEDS ORDERED: SODIUM CHLORIDE 0.9% IRR 1,500 ML BOTTLE IR ONE (14:55)
[2020-12-01] MEDS ORDERED: KETOROLAC 30 MG/1 ML INJ IV SCH (15:00)
--- NOTE | 2020-12-01 15:06 | Ultrasound Report ---
ULTRASOUND-GUIDED INTRAOPERATIVE HISTORY: Retained products of conception, guidance for D and C. TECHNIQUE: Transabdominal ultrasound FINDINGS: Ultrasound guidance was provided by radiology during D and C by [employer]. Initial images of the uterus demonstrate a thickened and heterogeneous endometrium measuring up to 1.9 cm. Post procedure images d emonstrate complete removal of the complex endometrium which measures 7 mm following D and C. IMPRESSION: Successful D and C under ultrasound guidance. Please correlate with the procedural report as needed. Signer Name: John Winters Jr, MD Signed: 12/01/2020 3:02 PM Workstation Name: [id number]
--- NOTE | 2020-12-01 15:49 | Post Anesthesia Evaluation ---
- Post Anesthesia Evaluation Patient Participated: Yes Airway Patent: Yes Stable Respiratory Function: Yes Nausea/Vomiting: No Temp > 96.8F: Yes Pain Manageable: Yes Adequeate Hydration: Yes Anesthesia Complications: No Block Receding Appropriately: Not Applicable Patient on Ventilator: No
[2020-12-02] MEDS: GENTAMICIN/NS 100 MG/100 ML 100 MG/100 ML BAG IV SCH ×2 (06:05→12:24)
[2020-12-02 06:17] LABS: Hemoglobin 6.4 gm/dl (10.1-14.3); Mean Corpuscular HGB Conc 34 % (30-34); Mean Corpuscular Volume 91 fl (79-97); Platelet Count 192 K/mm3 (140-440); Red Blood Count 2.05 M/mm3 (3.65-5.03); Red Cell Distribution Width 12.8 % (13.2-15.2)
[2020-12-02 06:23] LABS: Lymphocytes # (Auto) 1.4 K/mm3 (1.2-5.4); Lymphocytes % (Auto) 7.1 % (13.4-35.0); Monocytes % (Auto) 4.9 % (0.0-7.3)
[2020-12-02 06:26] LABS: Hematocrit 18.8 % (30.3-42.9)
[2020-12-02 06:46] LABS: Alanine Aminotransferase 7 units/L (7-56); Albumin 2.8 g/dL (3.9-5); Blood Urea Nitrogen 8 mg/dL (7-17); Calcium 8.1 mg/dL (8.4-10.2); Hemolysis Index 0
[2020-12-02 07:00] LABS: BUN/Creatinine Ratio 20
[2020-12-02] MEDS ORDERED: SODIUM CHLORIDE 0.9% 500 ML 500 ML IV SCH (07:30)
--- NOTE | 2020-12-02 07:42 | Event Note ---
Date: 12/02/20 Called by RN for critical lab result s/p D&C, Hgb 6.4 down from 9.4. Patient currently feeling okay, mild fatigue. Vitals signs stable, non-tachycardiac. BPs wnl, at baseline for patient. Fundus firm. Given fatigue and Hgb finding, will proceed with 2 units pRBCs for symptomatic anemia.
[2020-12-02] MEDS: AMPICILLIN/NS 2 GM/100 ML 2 GM/100 ML BAG IV SCH ×3 (07:47→18:45)
[2020-12-02] MEDS: LACTATED RINGERS 1,000 ML IV SCH (10:26)
--- NOTE | 2020-12-02 12:12 | Progress Note ---
Subjective - Subjective Date of service: 12/02/20 Interval history: endometritis second to retained POC SP suction D&C POD#1, PPD#8 Associated postop anemia to hb of ~6, receiving 2 units PRBCS no complaints at bedside continue fluids, blood products and IV Abx Monique Schuler MD Objective - Vital Signs Latest vital signs: Vital Signs Temp Pulse Resp Resp BP BP Pulse Ox 12/02/20 07:25 97.8 F 82 18 106/60 96 12/02/20 04:03 98.0 F 84 18 98/55 99 12/01/20 23:01 98.0 F 52 L 16 93/52 99 12/01/20 20:29 98.0 F 96 H 18 96/56 97 12/01/20 17:09 20 12/01/20 16:42 97.3 F L 102 H 20 109/66 99 12/01/20 16:40 20 12/01/20 15:14 98.2 F 88 18 114/71 100 12/01/20 14:59 85 22 120/76 100 12/01/20 14:54 84 22 115/69 100 12/01/20 14:49 84 18 114/65 100 12/01/20 14:44 80 17 115/69 100 12/01/20 13:45 27 H 97/55 100 12/01/20 13:00 21 98/55 99 Intake and Output 12/01/20 12/02/20 12/02/20 23:59 07:59 15:59 Intake Total 9688.492 7567 Output Total 800 Balance 991.850 6937 Intake: IV 1643.874 7095 AMPICILLIN/NS 2 GM/100 ML 100 2 gm In 100 ml @ 400 mls /hr IV Q6H [facility] Rx#: [id number] CLEOCIN 900 MG/50 mL 900 100 50 mg In 50 ml @ 100 mls/hr IV Q6H [facility] Rx#:[id number] GENTAMICIN/NS 100 MG/100 100 ML 100 mg In 100 ml @ 200 mls/hr IV Q8H [facility] Rx#: [id number] Lactated Ringers 1,000 ml 951.283 2599 @ 125 mls/hr IV DIRECT [facility] Rx#:[id number] Oral 60 Output: Urine 800 Void 800 Other: Total, Intake Amount 60 Total, Output Amount 800 # Voids Void 1 1 - Labs Labs: Abnormal lab results 12/01/20 12/01/20 12/02/20 Range/Units 09:34 09:34 05:48 WBC 21.3 H 19.2 H (4.5-11.0) K/mm3 RBC 3.09 L 2.05 L (3.65-5.03) M/mm3 Hgb 9.5 L 6.4 L D (10.1-14.3) gm/dl Hct 27.8 L 18.8 L* D (30.3-42.9) % RDW 12.5 L 12.8 L (13.2-15.2) % Lymph % (Auto) 7.1 L (13.4-35.0) % [place] # (Auto) 1.0 H (0.0-0.8) K/mm3 Seg Neutrophils % 88.0 H (40.0-70.0) % Seg Neuts % (Manual) 82.0 H (40.0-70.0) % Lymphocytes % (Manual) 5.0 L (13.4-35.0) % Seg Neutrophils # 16.9 H (1.8-7.7) K/mm3 Seg Neutrophils # Man 17.5 H (1.8-7.7) K/mm3 Lymphocytes # (Manual) 1.1 L (1.2-5.4) K/mm3 Monocytes # (Manual) 1.3 H (0.0-0.8) K/mm3 Creatinine (0.6-1.2) mg/dL Glucose (65-100) mg/dL Calcium (8.4-10.2) mg/dL Total Protein (6.3-8.2) g/dL Albumin (3.9-5) g/dL Crossmatch See Detail 12/02/20 Range/Units 05:48 WBC (4.5-11.0) K/mm3 RBC (3.65-5.03) M/mm3 Hgb (10.1-14.3) gm/dl Hct (30.3-42.9) % RDW (13.2-15.2) % Lymph % (Auto) (13.4-35.0) % [place] # (Auto) (0.0-0.8) K/mm3 Seg Neutrophils % (40.0-70.0) % Seg Neuts % (Manual) (40.0-70.0) % Lymphocytes % (Manual) (13.4-35.0) % Seg Neutrophils # (1.8-7.7) K/mm3 Seg Neutrophils # Man (1.8-7.7) K/mm3 Lymphocytes # (Manual) (1.2-5.4) K/mm3 Monocytes # (Manual) (0.0-0.8) K/mm3 Creatinine 0.4 L (0.6-1.2) mg/dL Glucose 121 H (65-100) mg/dL Calcium 8.1 L (8.4-10.2) mg/dL Total Protein 5.6 L (6.3-8.2) g/dL Albumin 2.8 L (3.9-5) g/dL Crossmatch
[2020-12-02 19:32] LABS: Bilirubin,Urine NEG (Negative); Blood,Urine SM (Negative); Color,Urine Straw (Yellow); Protein,Urine <15 mg/dL mg/dL (Negative)
--- NOTE | 2020-12-03 00:35 | Progress Note ---
Subjective - Subjective Date of service: 12/03/20 Interval history: endometritis second to retained POC SP suction D&C POD#2, PPD#9 Associated postop anemia to hb of ~6, receiving 2nd unit PRBC at bedside(delay in transfusion second to cross match for antibody positive) On triple abx: afebrile>24hours no complaints at bedside PE: soft,NT,firm fundus, VB minimal continue fluids, blood products and IV Abx Will switch to PO abx after 72 hours for retain POC/endometritis stable Monique Schuler MD Objective - Vital Signs Latest vital signs: Vital Signs Temp Pulse Resp BP Pulse Ox 12/03/20 00:05 97.9 F 66 19 91/49 99 12/02/20 23:35 97.7 F 82 19 94/53 100 12/02/20 23:05 97.7 F 77 19 102/62 99 12/02/20 22:50 97.7 F 77 19 102/62 99 12/02/20 20:50 97.8 F 82 16 91/54 99 12/02/20 18:54 98.6 F 81 18 96/59 12/02/20 18:53 98 F 67 19 92/50 99 12/02/20 18:24 97.5 F L 67 19 99/50 100 12/02/20 17:54 97.5 F L 63 19 99/52 99 12/02/20 17:24 97.5 F L 66 19 104/59 100 12/02/20 16:54 97.5 F L 68 20 101/53 12/02/20 16:24 97.5 F L 83 19 107/63 100 12/02/20 15:50 97.5 F L 74 19 110/54 12/02/20 12:17 97.5 F L 84 18 96/52 99 12/02/20 07:25 97.8 F 82 18 106/60 96 12/02/20 04:03 98.0 F 84 18 98/55 99 Intake and Output 12/02/20 12/02/20 12/03/20 15:59 23:59 07:59 Intake Total 250 0 Balance 250 0 Intake: IV 250 AMPICILLIN/NS 2 GM/100 ML 200 2 gm In 100 ml @ 400 mls /hr IV Q6H [facility] Rx#: [id number] CLEOCIN 900 MG/50 mL 900 50 mg In 50 ml @ 100 mls/hr IV Q6H [facility] Rx#:[id number] Blood Product 0 Leukoreduced Red Blood 0 Cells Unit [id number] Leukoreduced Red Blood 0 Cells Unit [id number] - Labs Labs: Abnormal lab results 12/01/20 12/01/20 12/02/20 Range/Units 09:34 19:00 05:48 WBC 19.2 H (4.5-11.0) K/mm3 RBC 2.05 L (3.65-5.03) M/mm3 Hgb 6.4 L D (10.1-14.3) gm/dl Hct 18.8 L* D (30.3-42.9) % RDW 12.8 L (13.2-15.2) % Lymph % (Auto) 7.1 L (13.4-35.0) % [place] # (Auto) 1.0 H (0.0-0.8) K/mm3 Seg Neutrophils % 88.0 H (40.0-70.0) % Seg Neutrophils # 16.9 H (1.8-7.7) K/mm3 Creatinine (0.6-1.2) mg/dL Glucose (65-100) mg/dL Calcium (8.4-10.2) mg/dL Total Protein (6.3-8.2) g/dL Albumin (3.9-5) g/dL Urine WBC (Auto) 10.0 H (0.0-6.0) /HPF Crossmatch See Detail 12/02/20 Range/Units 05:48 WBC (4.5-11.0) K/mm3 RBC (3.65-5.03) M/mm3 Hgb (10.1-14.3) gm/dl Hct (30.3-42.9) % RDW (13.2-15.2) % Lymph % (Auto) (13.4-35.0) % [place] # (Auto) (0.0-0.8) K/mm3 Seg Neutrophils % (40.0-70.0) % Seg Neutrophils # (1.8-7.7) K/mm3 Creatinine 0.4 L (0.6-1.2) mg/dL Glucose 121 H (65-100) mg/dL Calcium 8.1 L (8.4-10.2) mg/dL Total Protein 5.6 L (6.3-8.2) g/dL Albumin 2.8 L (3.9-5) g/dL Urine WBC (Auto) (0.0-6.0) /HPF Crossmatch
[2020-12-03] MEDS: GENTAMICIN/NS 100 MG/100 ML 100 MG/100 ML BAG IV SCH ×3 (02:31→18:28)
[2020-12-03 06:27] LABS: Hematocrit 28.8 % (30.3-42.9); Hemoglobin 9.8 gm/dl (10.1-14.3)
[2020-12-03] MEDS: AMPICILLIN/NS 2 GM/100 ML 2 GM/100 ML BAG IV SCH (09:39)
[2020-12-03] MEDS: metroNIDAZOLE 500 MG TAB PO SCH ×2 (15:35→21:59)
[2020-12-03] MEDS: DOXYCYCLINE 100 MG CAP PO SCH (21:54)
[2020-12-04] MEDS: GENTAMICIN/NS 100 MG/100 ML 100 MG/100 ML BAG IV SCH (02:51)
[2020-12-04 08:37] VITALS: BP 115/74
--- NOTE | 2020-12-04 09:46 | Discharge Summary ---
Providers - Providers Date of Admission: 12/01/20 11:47 Date of discharge: 12/04/20 Attending physician: EVELIO SHEPARD JR, MD 12/01/20 11:02 Consult to Physician [CONS] Urgent Comment: Consulting Provider: EVELIO SHEPARD JR Physician Instructions: Reason For Exam: vaginal bleeding, possible RPOC Primary care physician: [employer] Hospitalization Reason for admission: other (retained POC, endometritis) Procedure details: Patient underwent a D&C on 12/02/20 for retained products of conception. Hospital course: Patient admitted on 12/02/20 for hx of fevers, elevated white count and tachycardia with concerned for retained products of conception s/p 11/24/20. Patient started on Ampicillin, Gentamicin, and Clindamycin and underwent and uncomplicated D&C on HD1. Postoperatively, patient found to be anemic, with Hgb 6.7 and transfused 2 units pRBCs with appropriate rise. Patient transitioned on po antibiotics on 12/03/20 and discharged in good condition to complete 7 days treatment of doxycyline and flagyl to completed as outpatient with close outpatient follow up. Condition at discharge: Good Disposition: DC-01 TO HOME OR SELFCARE - Discharge Diagnoses (1) Retained products of conception Status: Acute (2) Endometritis Status: Acute Plan - Discharge Medications Prescriptions: metroNIDAZOLE [Flagyl TAB] 500 mg PO Q8HR #14 tablet DOXYCYCLINE Hyclate [Vibramycin CAP] 100 mg PO BID #14 tab - Provider Discharge Summary Activity: routine Diet: routine Instructions: other (continue antibiotics for 7 total days) Additional instructions: [] Smoking cessation referral if applicable(refer to patient education folder for contact #) [] Refer to [facility] Booklet Call your doctor immediately for: * Fever > 100.5 * Heavy vaginal bleeding ( >1 pad per hour) * Severe persistent headache * Shortness of breath * Reddened, hot, painful area to leg or breast * Drainage or odor from incision. * Keep incision clean and dry at all times and follow doctor's instructions regarding bathing/showering - Follow up plan Follow up: PRIMARY CARE, [Primary Care Provider] - 3-5 Days EVELIO SHEPARD JR, MD [Staff Physician] - 14 Days
[2020-12-04] MEDS ORDERED: FLU VACC QUAD 2020-2021 (6 months +)/PF 60 0.5 ML SYRINGE IM ONE (10:00)
[2020-12-04] MEDS: DOXYCYCLINE 100 MG CAP PO SCH (10:01)
--- NOTE | 2020-12-04 10:35 | Electrocardiograph Report ---
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
== END 2020-12-04 11:15 | disposition home or self-care (01) | DRG 769 ==
LOC: ED 09:02 → OB 11:47
PROVIDERS: ADMIT Obstetrics & Gynecology; ATTEND Obstetrics & Gynecology
PROC: 10D17ZZ Extraction of Products of Conception, Retained, Via Natural or Artificial Opening (ICD-10-PCS; principal; 2020-12-01)
PROC: 30233N1 Transfusion of Nonautologous Red Blood Cells into Peripheral Vein, Percutaneous Approach (ICD-10-PCS; 2020-12-02)
DX: O86.12 Endometritis following delivery (principal); O73.1 Retained portions of placenta and membranes, without hemorrhage; O99.03 Anemia complicating the puerperium
CPT/HCPCS: 36415; 76856; 76998; 80048; 80053; 81001; 84702; 85007; 85014; 85018; 85025; 85610; 85730; 86850; 86870; 86900; 86901; 86922; 87086; 88305; 88312; 90686; 93005; 96360; G0378; J0290; J1100; J1580; J1885; J2370; J2405; J2704; J3010; J7030; J7040; J7120; P9016